=== PATIENT | male | born 1935 | race Caucasian/White ===

== ENCOUNTER 2017-07-19 10:50 | Emergency (ER) | payer MEDICARE, OTHER ==
[~2017-07-19] VITALS: Ht 188 cm; Wt 90.7 kg
[~2017-07-19 10:50] MED LIST: ASPI81CH43; ATEN-60; RAMI1.2516; SIMV5TAB50
[2017-07-19] MEDS ORDERED: CALCIUM CHLOR(10%) 100MG/ML 10ML SYRINGE IV ONE (10:51)
[2017-07-19] MEDS ORDERED: EPINEPHrine HCL 1 MG/10 ML SYRG IV ONE (10:51)
[2017-07-19] MEDS ORDERED: SODIUM BICARBONATE 8.4% INJ 50ML SYRINGE IV ONE (10:51)
[2017-07-19] MEDS ORDERED: SODIUM BICARBONATE 8.4% INJ 50ML SYRINGE ONE (10:53)
[2017-07-19] MEDS ORDERED: EPINEPHrine HCL 1 MG/10 ML SYRG ONE ×2 (10:55→11:13)
[2017-07-19 11:05] VITALS: BP 118/68
[2017-07-19] MEDS ORDERED: POTA10TA51 PO (11:11)
[2017-07-19] MEDS ORDERED: LEVO75TA50 PO (11:11)
[2017-07-19] MEDS ORDERED: FURO40TA4 PO (11:11)
[2017-07-19] MEDS ORDERED: APIX2.5T PO (11:11)
[2017-07-19] MEDS ORDERED: CARV3.1240 PO (11:11)
[2017-07-19] MEDS ORDERED: AMIO200T33 PO (11:11)
[2017-07-19 13:56] LABS: Hepatitis B Surface Antibody Negative
== END 2017-07-19 14:13 | disposition expired ==
LOC: ER 10:50 → EDBD 10:50 → ER 14:13
DX: I46.9 Cardiac arrest, cause unspecified (principal); I11.0 Hypertensive heart disease with heart failure; I50.9 Heart failure, unspecified; Z86.73 Personal history of transient ischemic attack (TIA), and cerebral infarction without residual deficits; I48.91 Unspecified atrial fibrillation; Z79.899 Other long term (current) drug therapy
CPT/HCPCS: 36415; 51702; 71010; 86703; 86706; 86803; 87340; 92950; 93005; 99285; J0171